=== PATIENT | female | born 1945 | race Caucasian/White ===

== ENCOUNTER 2017-04-10 12:53 | Outpatient (CLI) | payer MEDICARE ==
--- NOTE | 2017-04-10 15:35 | MMO ---
BILATERAL SCREENING MAMMOGRAM: Date: 04/10/17 INDICATION: Annual exam. COMPARISON: Prior exam dated 12/09/15 and 11/27/14. FINDINGS: Interpretation of this exam was assisted with computer-aided detection. There are scattered fibroglandular elements bilaterally. There is stable biopsy clip within the right breast. There are benign-appearing densities within both breasts, left greater than right. There are benign-a ppearing calcifications bilaterally. No suspicious mass, cluster of microcalcifications, or area of architectural distortion is evident. IMPRESSION: BIRADS 2: Benign Finding(s) Recommend routine annual mammographic screening. POS: [facility]
== END 2017-04-10 12:54 | disposition home or self-care (01) ==
LOC: MAMMO 12:53
PROVIDERS: ATTEND Obstetrics & Gynecology
DX: Z12.31 Encounter for screening mammogram for malignant neoplasm of breast (principal)
CPT/HCPCS: 77067; G0202

== ENCOUNTER 2017-04-19 18:27 | Emergency (ER) | payer MEDICARE ==
[2017-04-19] MEDS ORDERED: Ondansetron ODT 4 MG TAB ONE (18:56)
[2017-04-19 19:42] LABS: Bilirubin Negative (Negative); Blood, Urine Negative (Negative); Glucose, Urine (Dipstick) Negative (Negative); Ketone, Urine Negative (Negative); Nitrite Negative (Negative); Protein, Urine (Dipstick) Negative (Neg-Trace); Urobilinogen 0.2 mg/dL (0.2-1.0)
== END 2017-04-19 20:40 | disposition home or self-care (01) ==
LOC: ERS 18:27
DX: R11.2 Nausea with vomiting, unspecified (principal); R19.7 Diarrhea, unspecified; Z79.899 Other long term (current) drug therapy
CPT/HCPCS: 81003; 87086; 96372; Q0162

== ENCOUNTER 2017-11-06 13:57 | Outpatient (CLI) | payer MEDICARE | END 2017-11-06 13:58 | disposition home or self-care (01) | LOC: BICMAMMO 13:57 | PROVIDERS: ATTEND Internal Medicine | DX: M81.0 Age-related osteoporosis without current pathological fracture (principal); M85.89 Other specified disorders of bone density and structure, multiple sites | CPT/HCPCS: 77080 ==

== ENCOUNTER 2018-04-16 14:07 | Outpatient (CLI) | payer MEDICARE | END 2018-04-16 14:08 | disposition home or self-care (01) | LOC: BICMAMMO 14:07 | PROVIDERS: ATTEND Obstetrics & Gynecology | DX: Z12.31 Encounter for screening mammogram for malignant neoplasm of breast (principal) | CPT/HCPCS: 77063; 77067 ==

== ENCOUNTER 2018-04-24 15:42 | Outpatient (CLI) | payer MEDICARE ==
--- NOTE | 2018-04-24 17:03 | ULT ---
LEFT BREAST ULTRASOUND: 04/24/18 HISTORY: Enlarging well-circumscribed mass seen on screening mammography in the upper aspect of the left breas t on screening mammography. TECHNIQUE: Multiplanar jones scale and color doppler images were obtained in a left breast ultrasound. FINDINGS: In the 2 o'clock position of the left breast, approximately 2 cm from the nipple, there is a well-cir cumscribed hypoechoic lesion measuring 1.1 cm in greatest dimension. This likely represents a cyst. N o suspicious shadowing or solid mass are identified. IMPRESSION: BIRADS 2: Benign Finding(s) Routine annual screening mammography (for women over age 40). POS: [facility]
== END 2018-04-24 15:43 | disposition home or self-care (01) ==
LOC: BICULT 15:42
PROVIDERS: ATTEND Obstetrics & Gynecology
DX: N63.20 Unspecified lump in the left breast, unspecified quadrant (principal)

== ENCOUNTER 2020-05-15 10:28 | Outpatient (CLI) | payer MEDICARE ==
--- NOTE | 2020-05-15 12:56 | BD ---
DEXA BONE DENSITY STUDY: Date: 05/15/2020 HISTORY: Postmenopausal. FINDINGS: Lumbar Spine: BMD (g/cm2) L1 0.765 T-Score: -2.0 L2 0.882 T-Score: -1.3 L3 0.888 T-Score: -1.8 L4 0.891 T-Score: -1.5 Total 0.859 T-Score: -1.7 Left Femoral Neck: 0.690 T-Score: -1.4 Total Femur: 0.912 T-Score: -0.2 IMPRESSION: 1. Osteopenia of the lumbar spine and left femoral neck. 2. The 10 year fracture risk for a major osteoporotic fracture is 17% and for a hip fracture is 3.8% . These fracture probabilities are calculated for an untreated patient. POS: [facility]
--- NOTE | 2020-05-15 14:19 | MMO ---
Bilateral MAMMO Bilat Screen [facility]. CLINICAL HISTORY: Patient is 75 years old and is seen for screening. The patient has no family history of breast cancer. The patient has no personal history of cancer. VIEWS: The views performed were: bilateral craniocaudal with tomosynthesis and bilateral mediolateral oblique with tomosynthesis. FILMS COMPARED: The present examination has been compared to a prior imaging study performed at [facility] on 04/16/2018. This study has been interpreted with the assistance of computer-aided detection. MAMMOGRAM FINDINGS: The breasts are heterogeneously dense, which could obscure a lesion on mammography. Benign calcifications are noted bilaterally. Nodularity is stable. Right biopsy clip. There are no suspicious masses, suspicious calcifications, or new areas of architectural distortion. IMPRESSION: THERE IS NO MAMMOGRAPHIC EVIDENCE OF MALIGNANCY. A ROUTINE FOLLOW-UP MAMMOGRAM IN 1 YEAR IS RECOMMENDED. THE RESULTS OF THIS EXAM WERE SENT TO THE PATIENT. ACR BI-RADS Category 2 - Benign finding MAMMOGRAPHY NOTE: 1. A negative mammogram report should not delay a biopsy if a dominant of clinically suspicious mass is present. 2. Approximately 10% to 15% of breast cancers are not detected by mammography. 3. Adenosis and dense breasts may obscure an underlying neoplasm. Reported by: ANULE LOPEZ MD Electonically Signed: [id number]
== END 2020-05-15 10:29 | disposition home or self-care (01) ==
LOC: BICMAMMO 10:28
PROVIDERS: ATTEND Internal Medicine
DX: Z12.31 Encounter for screening mammogram for malignant neoplasm of breast (principal); Z13.820 Encounter for screening for osteoporosis; M85.89 Other specified disorders of bone density and structure, multiple sites; Z78.0 Asymptomatic menopausal state
CPT/HCPCS: 77063; 77067; 77080

== ENCOUNTER 2021-04-14 07:20 | Outpatient (CLI) | payer MEDICARE | END 2021-04-14 07:21 | disposition home or self-care (01) | LOC: BICULT 07:20 | PROVIDERS: ATTEND Internal Medicine | DX: N18.32 Chronic kidney disease, stage 3b (principal) | CPT/HCPCS: 76770 ==

== ENCOUNTER 2021-05-17 10:20 | Outpatient (CLI) | payer MEDICARE | END 2021-05-17 10:21 | disposition home or self-care (01) | LOC: BICMAMMO 10:20 | PROVIDERS: ATTEND Internal Medicine | DX: Z12.31 Encounter for screening mammogram for malignant neoplasm of breast (principal) | CPT/HCPCS: 77063; 77067 ==

== ENCOUNTER 2022-07-11 08:19 | Outpatient (CLI) | payer MEDICARE | END 2022-07-11 08:20 | disposition home or self-care (01) | LOC: BICMAMMO 08:19 | PROVIDERS: ATTEND Internal Medicine | DX: Z12.31 Encounter for screening mammogram for malignant neoplasm of breast (principal); M85.852 Other specified disorders of bone density and structure, left thigh; M85.851 Other specified disorders of bone density and structure, right thigh; Z78.0 Asymptomatic menopausal state | CPT/HCPCS: 77063; 77067; 77080 ==

== ENCOUNTER 2022-12-08 10:59 | Outpatient (CLI) | payer MEDICARE | END 2022-12-08 11:00 | disposition home or self-care (01) | LOC: RAD 10:59 | PROVIDERS: ATTEND Internal Medicine | DX: R93.89 Abnormal findings on diagnostic imaging of other specified body structures (principal) | CPT/HCPCS: 71046 ==